=== PATIENT | female | born 1975 | race Caucasian/White ===

== ENCOUNTER 2016-07-24 20:12 | Emergency (ER) | payer OTHER ==
[~2016-07-24] VITALS: Ht 162.6 cm; Wt 58.0 kg
[~2016-07-24 20:12] MED LIST: CYCL-319 PO; HYDR-3498 PO
[2016-07-24 20:14] VITALS: Ht 162.6 cm; Wt 58.0 kg
[2016-07-24] MEDS ORDERED: HYDROCODONE/APAP (10/325) TAB PO ONE (21:30)
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
[2016-07-24 21:42] LABS: URINE BLOOD (Dip) POC Negative (NEGATIVE)
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
--- NOTE | 2016-07-24 22:43 | RADRPT ---
PROCEDURE: XR Chest. CLINICAL INDICATION: Chest pain TECHNIQUE: PA and Lateral views of the chest were obtained. COMPARISON: 08/07/2015 Chest x-ray FINDINGS: The cardiomediastinal silhouette is within normal limits of size. The lungs are clear without pleur al effusion or focal consolidation. No pneumothorax. The osseous structures and soft tissues are unr emarkable. IMPRESSION: 1. No evidence for active cardiopulmonary disease. RPTAT:AAJJ Physician Tiera Date Time Electronically viewed and signed by Physician Tiera on 07/24/2016 22:42 SAPNA/
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
[2016-07-24] MEDS ORDERED: IBUP-1542 PO (23:05)
[2016-07-24] MEDS ORDERED: HYDR-906 PO (23:05)
[2016-07-24] MEDS ORDERED: CYCL-319 PO (23:05)
[2016-07-24 23:43] VITALS: BP 109/67; PULSE 81; RESP 16
== END 2016-07-24 23:45 | disposition home or self-care (01) ==
LOC: FTE 20:12
DX: S00.03XA Contusion of scalp, initial encounter (principal); S16.1XXA Strain of muscle, fascia and tendon at neck level, initial encounter; S39.012A Strain of muscle, fascia and tendon of lower back, initial encounter; M25.511 Pain in right shoulder; S20.219A Contusion of unspecified front wall of thorax, initial encounter; S40.811A Abrasion of right upper arm, initial encounter; V87.7XXA Person injured in collision between other specified motor vehicles (traffic), initial encounter
CPT/HCPCS: 70450; 71020; 72125; 72131; 81003